=== PATIENT | male | born 2005 | race African-American/Black ===

== ENCOUNTER 2024-10-13 20:00 | Emergency (ER) | payer SELFPAY ==
[2024-10-13] MEDS: Amoxicillin/Clavulanate K 875-125 MG Tab PO ONE (22:08)
== END 2024-10-13 22:11 | disposition home or self-care (01) ==
LOC: MW.ED 20:00
DX: S01.512A Laceration without foreign body of oral cavity, initial encounter (principal); S01.81XA Laceration without foreign body of other part of head, initial encounter; Z75.8 Other problems related to medical facilities and other health care; Y04.8XXA Assault by other bodily force, initial encounter
CPT/HCPCS: 99283; A9270